=== PATIENT | male | born 1955 | race Caucasian/White ===

== ENCOUNTER 2016-11-11 08:30 | Emergency (ER) | payer BC ==
[~2016-11-11] VITALS: Ht 193 cm; Wt 129.3 kg
== END 2016-11-11 10:51 | disposition short-term general hospital (02) ==
LOC: ER 08:30
DX: N20.1 Calculus of ureter (principal); Z88.8 Allergy status to other drugs, medicaments and biological substances
CPT/HCPCS: J1885